=== PATIENT | female | born 1965 | race Caucasian/White ===

== ENCOUNTER 2020-09-30 10:42 | Outpatient (CLI) | payer OTHER, SELFPAY ==
--- NOTE | 2020-09-30 10:45 | MM_ITS ---
WS: [id number] Bilateral screening digital mammogram, 09/30/2020 Clinical Data: SCREENING Comparison: 04/27/2019, 04/12/2017, 06/07/2014, 04/16/2014. Findings: The breast parenchymal pattern shows fibroglandular tissue. No spiculated masses or clustered calcifi cations are seen. There are no secondary signs of carcinoma. MM/[id number] Impression: 1. Negative bilateral mammogram unchanged. 2. Recommend annual screening mammograms. BIRADS: 1-Negative FOLLOW UP: 1 Year Follow-up The CAD case checker was used.
== END 2020-09-30 10:43 | disposition home or self-care (01) ==
LOC: RADSHAW 10:44
PROVIDERS: PCP Family Medicine; Visit Provider Family Medicine
DX: Z12.31 Encounter for screening mammogram for malignant neoplasm of breast (principal)
CPT/HCPCS: 77067

== ENCOUNTER → 2021-08-06 09:05 | Outpatient (BNVA) | payer OTHER, SELFPAY | PROVIDERS: PCP Family Medicine; Visit Provider Surgery | DX: Z20.822 Contact with and (suspected) exposure to COVID-19 (principal); Z11.52 Encounter for screening for COVID-19 | CPT/HCPCS: 87635 ==

== ENCOUNTER 2021-08-13 08:52 | Day surgery (SDC) | payer OTHER, SELFPAY ==
--- NOTE | 2021-08-13 09:12 | P.ANESASSM_ITS ---
Pre-Anesthetic Assessment Pre-Anesthetic Assessment: Height/Weight: Height 1.75 m Weight 70.307 kg Preop Diagnosis: panendoscopy Proposed Procedure: Operation Date: 08/13/21 10:00 Proposed Procedures p EGD/colon 66381 [id number] R19.7 R10.9(Not Applicable) - Jerson Culver MD s Colonoscopy(Not Applicable) - Jerson Culver MD Was Beta Ashley taken within 24 hours: N/A Was Clonidine taken within 24 hours: N/A Social: Social History: Tobacco Packs per day: 1 Exam: Pre-Anes Outpt Exam: alert, oriented x 3, clear to auscultation bilaterally and regular rate & rhythm Airway: Submandibular: WNL Cervical ROM: WNL MP: 2 Dentition: Pa rtials History/ROS: No significant history except as noted and No significant complaints Pulmonary: Pulmonary: COPD Anesthetic Plan: ASA status: 2 Anesthesia: Anesthesia Evaluation and MAC Risk of > 500 ml blood loss (7ml/kg in children): No PFSH Anesthesia PFSH: Surgical History (Updated 06/02/21 @ 13:52 by Jerson Culver MD) History of colonoscopy History of hysterectomy History of laparoscopic cholecystectomy History of laparoscopy (~1990) Social History Smoking and tobacco status: never smoked Data Anesthesia Cardiac Studies: No Data to Display
--- NOTE | 2021-08-13 09:20 | P.HP_ITS ---
Same Day Surgery H&P Indication for Procedure/HPI DATE OF PROCEDURE: August 13, 2021 CHIEF COMPLAINT/INDICATIONFOR SURGICAL PROCEDURE: egd/colonoscopy PREOP DIAGNOSIS: panendoscopy PLANNED PROCEDRUE: Operation Date: 08/13/21 10:00 Proposed Procedures p EGD/colon [id number] R19.7 R10.9(Not Applicable) - Jerson Culver MD s Colonoscopy(Not Applicable) - Jerson Culver MD Medications/Allergies* Home Medications Medication Instructions Recorded Confirmed Type multivit with minerals-ferrous 1 ea PO DAILY 06/02/21 08/12/21 History sulfate 4.5 mg iron oral powder packet Allergies/Adverse Reactions Allergy/AdvReac Type Severity Reaction Status Date / Time No Known Allergies Allergy Verified 08/12/21 09:52 Pertinent History/Comorbid Conditions* Surgical History (Updated 06/02/21 @ 13:52 by Jerson Culver MD) History of colonoscopy History of hysterectomy History of laparoscopic cholecystectomy History of laparoscopy (~1990) Social History Smoking and tobacco status: never smoked Pertinent Exam Findings alert, oriented x 3 and regular rate & rhythm Recommendations Surgery/Procedure today Coding Level of Care Code Acute [employer] for [employer]
[2021-08-13 09:24] VITALS: BP 128/67; PULSE 76; RESP 18; TEMP 36.2; O2SAT 98
[2021-08-13] MEDS: sodium chloride 0.9% 1,000 ML 30 ML IV (09:32)
[2021-08-13 10:55] VITALS: BP 100/47; PULSE 75; RESP 12; TEMP 36.2; O2SAT 98
--- NOTE | 2021-08-13 10:58 | ANE.PACU2 ---
Inpatient post-anesthesia follow up: Airway intact: Yes Vital signs: Temperature 97.1 F Pulse Rate 76 Respiratory Rate 18 Blood Pressure 128/67 Pulse Oximetry 98 Oxygen Delivery Me thod Room Air Oxygen Flow Rate Fraction of Inspir ed Oxygen Hydration adequate: Yes Nausea and vomiting: No Pain level: 1 Mental status: Baseline
== END 2021-08-13 11:35 | disposition home or self-care (01) ==
PROVIDERS: PCP Family Medicine; Visit Provider Surgery
PROC: 0DJ08ZZ Inspection of Upper Intestinal Tract, Via Natural or Artificial Opening Endoscopic (ICD-10-PCS; CPT 43235; principal; 2021-08-13 10:00)
PROC: 0DJD8ZZ Inspection of Lower Intestinal Tract, Via Natural or Artificial Opening Endoscopic (ICD-10-PCS; CPT 45378; 2021-08-13 10:00)
DX: K59.00 Constipation, unspecified (principal); K21.9 Gastro-esophageal reflux disease without esophagitis; K57.30 Diverticulosis of large intestine without perforation or abscess without bleeding; K22.2 Esophageal obstruction; K29.50 Unspecified chronic gastritis without bleeding
CPT/HCPCS: 43239; 45378; 88305; 96360; 96361; J2704; J7030

== ENCOUNTER → 2022-07-26 10:42 | Outpatient (BNVA) | payer OTHER, SELFPAY | PROVIDERS: PCP Family Medicine; Visit Provider Student in an Organized Health Care Education/Training Program | DX: S62.615A Displaced fracture of proximal phalanx of left ring finger, initial encounter for closed fracture (principal); W19.XXXA Unspecified fall, initial encounter | CPT/HCPCS: 73130 ==